=== PATIENT | male | born 1960 | race Caucasian/White ===

== ENCOUNTER 2016-11-10 10:49 | Emergency (ER) | payer MEDICAID, OTHER ==
--- NOTE | 2016-11-10 11:20 | EDPHY ---
H & P Stated Complaint: Weakness, nausea and diarrhea. Source: Patient - Medical/Surgical History Other PMH: HTN, Diabetes, - Social History Smoking Status: Never smoked Time Seen by Provider: 11/10/16 11:06 HPI/ROS: CHIEF COMPLAINT: Nausea vomiting diarrhea, and abdominal pain HISTORY OF PRESENT ILLNESS: This is a 56-year-old male presenting to the emergency department via EMS. Patient states he has been having several episodes of vomiting and diarrhea onset last night around 1900, with abdominal cramping. Patient concerned might be food poisoning he ate shrimp last night and that is when the nausea vomiting started. Patient states he has been able to tolerate ice chips and water this morning without vomiting and 1 cookie but has had consistent diarrhea since last night. Patient states he feels generalized weakness with abdominal cramping. Patient states he has had a history of diverticulitis 2 years ago, herniated disc at L5- S1 and hypertension. REVIEW OF SYSTEMS: Constitutional: No fever no chills Eyes: No vision changes ENT: No sore throat Respiratory: No shortness of breath Cardiac: No chest pain Gastrointestinal: as above Genitourinary: No urinary discomfort Musculoskeletal: No back pain Skin: No rash Neurological: No headache or dizziness (Amaya Miller) - Physical Exam Exam: General Appearance: Alert, no distress. Eyes: Pupils equal and round no pallor or injection. ENT, Mouth: Mucous membranes dry Respiratory: There are no retractions, lungs are clear to auscultation. Cardiovascular: Regular rate and rhythm. Gastrointestinal: Abdomen is soft, diffuse tenderness, no distension. Bowels are hyperactive all quadrants Neurological: No focal deficits Skin: Warm and dry, no rashes. Musculoskeletal: Neck is supple nontender. Extremities: symmetrical, full range of motion. Psychiatric: Patient is oriented X 3, there is no agitation. (Amaya Miller) Constitutional: Initial Vital Signs Temperature (C) 36.4 C 11/10/16 10:50 Heart Rate 97 11/10/16 10:50 Respiratory Rate 20 11/10/16 10:50 Blood Pressure 116/74 11/10/16 10:50 O2 Sat (%) 93 11/10/16 10:50 O2 Delivery Mode Room Air Allergies/Adverse Reactions: iodine Allergy (Verified 11/10/16 11:01) Home Medications: Medication Instructions Recorded AZITHROMYCIN 11/10/16 Lisinopril-Hctz 10-12.5 mg Tab 11/10/16 Ondansetron Odt [Zofran Odt 4 mg 4 mg PO Q4 #8 tab 11/10/16 (*)] Medical Decision Making ED Course/Re-evaluation: Discussed plan of care: IV fluids, CBC, Chem 7 1300: Re-evaluation, patient states feeling better decrease in abdominal cramping no active vomiting. PO challenge 1400: Patient tolerating juice, fruit and crackers 1430: Patient states feeling much better, ready to go. Ambulatory without gait disturbance. Discharge home--> stable, discussed discharge instructions ( Amaya Miller) I did not see this patient while he was in the emergency department. However his care was discussed with the nurse practitioner while the patient was in the department. I agree with treatment plan and management (Bashir Landrum) Differential Diagnosis: Differential diagnosis considered but not limited to gastroenteritis, food poisoning and diverticulitis (Amaya Miller) - Data Points Laboratory Results: Laboratory Results 11/10/16 11:00 11/10/16 11:00 Medications Given: Discontinued Medications Sodium Chloride (Ns) 1,000 mls @ 0 mls/hr IV ONCE ONE PRN Reason: Wide Open Stop: 11/10/16 11:45 Last Admin: 11/10/16 11:10 Dose: 1,000 mls Sodium Chloride (Ns) 1,000 mls @ 0 mls/hr IV ONCE ONE PRN Reason: Wide Open Stop: 11/10/16 12:26 Last Admin: 11/10/16 12:28 Dose: 1,000 mls Departure - Departure Disposition: Home, Routine, Self-Care Clinical Impression: Nausea with vomiting, Diarrhea Condition: Good Instructions: Dehydration (ED), Acute Nausea and Vomiting (ED), Nutrition Tips for Relief of Diarrhea (ED) Additional Instructions: 1. Liquid diet for the next 6-12 hours such as: Water, ice chips, popsicles, broth 2. Advanced diet as tolerated start with bland foods, such as: Scrambled eggs plain, oatmeal, bananas 3. You can also take [id number] Imodium to help with any recurrence of diarrhea 4. Follow up with your primary care provider next week Referrals: Patient,NotPresent [Unknown] - As per Instructions Prescriptions: Ondansetron Odt [Zofran Odt 4 mg (*)] 4 mg PO Q4 #8 tab
[2016-11-10 11:26] LABS: % IMMATURE GRANULYOCYTES 0.8 % (0.0-1.1); ABSOLUTE IMMATURE GRANULOCYTES 0.16 10^3/uL (0.00-0.10); ADD DIFF? NO; ADD MORPH? NO; ADD SCAN? YES; ATYPICAL LYMPHOCYTE FLAG 0 (0-99); FRAGMENT RBC FLAG 0 (0-99); HEMATOCRIT 44.6 % (40.0-51.0); HEMOGLOBIN 14.8 g/dL (13.7-17.5); LIPEMIA HEMOLYSIS FLAG 80 (0-99); MEAN CELL HEMOGLOBIN 30.1 pg (27.9-34.1); MEAN CELL HEMOGLOBIN CONCENTR. 33.2 g/dL (32.4-36.7); MEAN CELL VOLUME 90.7 fL (81.5-99.8); MEAN PLATELET VOLUME 10.4 fL (8.7-11.7); PLATELET CLUMPS FLAG 0 (0-99); PLATELET COUNT 287 10^3/uL (150-400); RED BLOOD CELL COUNT 4.92 10^6/uL (4.40-6.38); RED CELL DISTRIBUTION WIDTH 12.6 % (11.5-15.2)
[2016-11-10 11:31] LABS: ANION GAP 15 mEq/L (8-16); CALCIUM 8.7 mg/dL (8.5-10.4); CARBON DIOXIDE 23 mEq/l (22-31); CHLORIDE 97 mEq/L (97-110); CREATININE 1.3 mg/dL (0.7-1.3); GLOMERULAR FILTRATION RATE 57; GLUCOSE 177 mg/dL (70-100); LEFT SHIFT FLG 140 (0-99); POTASSIUM 3.8 mEq/L (3.5-5.2); SODIUM 135 mEq/L (134-144)
[2016-11-10] MEDS ORDERED: NS 1,000 ML IV ONE ×2 (11:44→12:25)
[2016-11-10 11:47] LABS: SCAN POSITIVE
[2016-11-10 12:15] VITALS: RESP 18; TEMP 98.1
[2016-11-10 12:34] LABS: PLATELET ESTIMATE ADEQUATE (ADEQ)
[2016-11-10 12:35] LABS: TOXIC GRANULATION PRESENT
[2016-11-10 13:48] VITALS: BP 134/80; PULSE 92; O2SAT 93
[2016-11-10] MEDS ORDERED: ONDANSETRON 4MG PREPACK#2 BTL TAKEHOME ONE (14:35)
== END 2016-11-10 15:12 | disposition home or self-care (01) ==
LOC: EDUNIT#
DX: R11.2 Nausea with vomiting, unspecified (principal); R19.7 Diarrhea, unspecified; I10 Essential (primary) hypertension; E11.9 Type 2 diabetes mellitus without complications